=== PATIENT | male | born 1965 | race Caucasian/White ===

== ENCOUNTER 2018-09-21 09:34 | Emergency (ER) | payer OTHER ==
[~2018-09-21] VITALS: Ht 188 cm; Wt 88.5 kg
[2018-09-21 09:38] VITALS: BP 129/79
[2018-09-21] MEDS ORDERED: IBUPROFEN 400 MG TABLET ONE (09:46)
[2018-09-21] MEDS ORDERED: IBUPROFEN 400 MG TABLET PO ONE (10:00)
--- NOTE | 2018-09-21 10:39 | NUR ---
Patient discharged to home in stable condition. Written and verbal after care instructions given. Patient verbalizes understanding of instruction.
== END 2018-09-21 10:39 | disposition home or self-care (01) ==
LOC: ER 09:35
DX: S40.012A Contusion of left shoulder, initial encounter (principal); S09.8XXA Other specified injuries of head, initial encounter; F17.200 Nicotine dependence, unspecified, uncomplicated; V49.49XA Driver injured in collision with other motor vehicles in traffic accident, initial encounter; Y93.89 Activity, other specified; Y92.413 State road as the place of occurrence of the external cause; Y99.8 Other external cause status
CPT/HCPCS: 70450; 73030; 99284; A4606